=== PATIENT | female | born 1965 | race Caucasian/White ===

== ENCOUNTER 2017-07-03 11:25 | Emergency (ER) | payer OTHER ==
[~2017-07-03] VITALS: Ht 170.2 cm; Wt 88.1 kg
[2017-07-03 12:37] LABS: HEMATOCRIT 37.8 % (36.0-46.0); HEMOGLOBIN 12.4 G/DL (11.9-15.5); MCHC 32.8 G/DL (30.0-36.0); MCV 82.4 FL (83-99); PLATELET COUNT 249 K/uL (156-360); RBC DIS.WIDTH-CV 15.1 % (11.8-14.6); RBC DIS.WIDTH-SD 45.5 % (39-53); RED BLOOD COUNT 4.59 M/uL (3.80-5.20); WHITE BLOOD COUNT 5.8 K/uL (4.1-10.2)
[2017-07-03 13:05] LABS: CHLORIDE 103 mEq/L (99-109); POTASSIUM 3.9 mEq/L (3.7-5.4); SODIUM 137 mEq/L (136-147)
[2017-07-03 13:07] LABS: GLUCOSE 130 mg/dL (70-99)
[2017-07-03 13:11] LABS: CREATININE 0.8 mg/dL (0.6-1.3); GFR ESTIMATE (CALCULATED) > 59 mL/min/
[2017-07-03 13:12] LABS: UREA NITROGEN (BUN) 13 mg/dL (9-23)
[2017-07-03] MEDS ORDERED: PREDNISONE20 MG PO (14:23)
[2017-07-03] MEDS ORDERED: TESSALON200 MG PO (14:24)
[2017-07-03] MEDS ORDERED: GUAIFEN-CODEINE5 ML PO (14:24)
[2017-07-03 14:33] VITALS: BP 126/82
== END 2017-07-03 14:33 | disposition home or self-care (01) ==
LOC: EME 11:25
DX: J06.9 Acute upper respiratory infection, unspecified (principal); I10 Essential (primary) hypertension; E78.5 Hyperlipidemia, unspecified; E11.9 Type 2 diabetes mellitus without complications; J45.909 Unspecified asthma, uncomplicated; L40.50 Arthropathic psoriasis, unspecified; F17.210 Nicotine dependence, cigarettes, uncomplicated
CPT/HCPCS: 71046; 80048; 85027; 93005; 94640; 99281; 99284; J7512